=== PATIENT | male | born 1955 | race Caucasian/White ===

== ENCOUNTER 2018-07-21 14:17 | Emergency (ER) | payer SELFPAY ==
[2018-07-21 14:41] LABS: INR-International Normal Ratio 1.4; PTT 58.9 SEC (22.9-36.1); Prothrombin Time 17.1 SEC (12.0-14.7)
[2018-07-21 14:43] LABS: Hemoglobin 16.9 g/dL (14.0-18.0); Mean Corpuscular HGB CONC 32.7 g/dL (32.0-36.0); Mean Corpuscular Hemoglobin 29.3 pg (27.0-31.0); Mean Corpuscular Volume 89.5 fL (78.0-98.0); Platelet Count 149 thou/uL (130-400); RBC Distribution Width 13.5 % (11.5-14.5); Red Blood Cell (RBC) Count 5.77 mill/uL (4.70-6.10); White Blood Cell (WBC) Count 9.2 thou/uL (4.8-10.8)
[2018-07-21 14:44] LABS: Manual Diff?? YES; Mean Platelet Volume 12.3 fL (7.4-10.4)
[2018-07-21 14:46] LABS: Anion Gap 26 mmol/L (10-20); BUN (Urea Nitrogen) 13 mg/dL (8.4-25.7); Calc. Creatinine Clearance 0 mL/min (70-130); Calcium 9.6 mg/dL (7.8-10.44); Carbon Dioxide 18 mmol/L (23-31); Chloride 102 mmol/L (98-107); Estimated GFR-MDRD 56; Glucose 289 mg/dL (80-115); Potassium 3.5 mmol/L (3.5-5.1); Sodium 142 mmol/L (136-145)
[2018-07-21 14:47] LABS: ALT (SGPT) 110 U/L (8-55); AST (SGOT) 83 U/L (5-34); Albumin 4.2 g/dL (3.4-4.8); Alkaline Phosphatase 148 U/L (40-150); Bilirubin, Total 0.5 mg/dL (0.2-1.2); CK (CPK) 234 U/L (30-200); Globulin 3.8 g/dL (2.4-3.5)
[2018-07-21 14:55] LABS: CKMB 7.9 ng/mL (0-6.6)
[2018-07-21 14:56] LABS: Troponin I 0.194 ng/mL (< 0.028)
[2018-07-21 14:59] LABS: Band 2 % (5-11); Eosinophils 1 % (0-10); Lymphocytes 36 % (21-51); MDiff Complete? YES; Metamyelocyte 1 % (0-0); Monocytes 2 % (0-10); Neutrophil 44 % (42-75); Reactive Lymphocytes 14 % (0-10)
[2018-07-21 15:00] LABS: Giant Platelets SLIGHT; Large Platelets MODERATE
[2018-07-21 15:01] LABS: PLT Morphology Comment PLT clumps seen-LOW; Platelet Clumps SLIGHT; RBC Morphology Normal
== END 2018-07-21 14:29 | disposition expired ==
LOC: EDBD 14:17 → MADERS 14:17
DX: I46.9 Cardiac arrest, cause unspecified (principal)
CPT/HCPCS: 36415; 80053; 82550; 82553; 83880; 84484; 85025; 85610; 85730; 92950; 96374; 96375